=== PATIENT | male | born 1935 | race Caucasian/White ===

== ENCOUNTER 2018-10-26 18:38 | Inpatient (IN) | payer OTHER, MEDICARE ==
[~2018-10-26] VITALS: Ht 172.7 cm; Wt 62.1 kg
[~2018-10-26 18:38] MED LIST: ALBU90OI6 INH; ASPI325EC PO; BUDE6HFA; Bactrim Ds Tab1 EACH PO; LISI20 PO; OMEP20ER PO; Omeprazole20 M1; ZESTORETIC 20-121 E1 PO
[2018-10-26] MEDS ORDERED: **INCOMPLETE MED REC (19:27)
[2018-10-26 19:34] LABS: PCO2 Arterial 30.8 mmHg (35-45); PO2 Arterial 58.3 mmHg (80-100); pH Blood Arterial 7.49 (7.35-7.45)
[2018-10-26] MEDS ORDERED: OMEPRAZOLE20 MG PO (19:38)
[2018-10-26] MEDS ORDERED: ASPI325 PO (19:38)
[2018-10-26 19:39] LABS: BASOPHILS ABSOLUTE AUTO 0.06 K/mm3 (0.00-0.23); BASOPHILS PERCENT AUTO 1 % (0-2); EOSINOPHILS ABSOLUTE AUTO 0.15 K/mm3 (0.00-0.68); EOSINOPHILS PERCENT AUTO 1 % (0-6); Hematocrit 44.5 % (37.0-53.0); IMMATURE GRAN ABSOLUTE AUTO 0.04 K/mm3 (0.00-0.10); IMMATURE GRAN PERCENT AUTO 0 % (0-1); LYMPHOCYTES ABSOLUTE AUTO 1.24 K/mm3 (0.84-5.20); LYMPHOCYTES PERCENT AUTO 12 % (21-46); MONOCYTES ABSOLUTE AUTO 0.83 K/mm3 (0.16-1.47); MONOCYTES PERCENT AUTO 8 % (4-13); Mean Corpuscular HGB 30.6 pg (26.0-34.0); Mean Corpuscular HGB Conc 31.5 g/dL (31.5-36.5); Mean Corpuscular Volume 97 fL (80-100); Mean Platelet Volume 10.9 fL (9.1-12.4); NEUTROPHILS ABSOLUTE AUTO 8.03 K/mm3 (1.96-9.15); NEUTROPHILS PERCENT AUTO 78 % (41-73); Platelet Count 307 K/mm3 (150-400); RDW Coefficient Variation 12.9 % (11.7-14.2); Red Blood Cell Count 4.58 M/mm3 (4.30-5.90); White Blood Cell Count 10.35 K/mm3 (4.00-11.30)
[2018-10-26 19:51] LABS: Alanine Aminotransfer (ALT/SGP 18 U/L (12-78); Albumin, Blood 3.8 g/dL (3.4-5.0); Albumin/Globulin Ratio 0.9 (0.8-1.8); Alk Phos 115 U/L (50-136); Anion Gap 9 mmol/L (6-16); Aspartate Aminotrans (AST/SGOT 18 U/L (12-37); Bilirubin, Total 1.4 mg/dL (0.1-1.0); Blood Urea Nitrogen 23 mg/dL (8-24); Bun/Creatinine Ratio 22.3 (12.0-20.0); CO2, Blood 25 mmol/L (21-32); Calcium, Blood 9.4 mg/dL (8.5-10.1); Chloride, Blood 103 mmol/L (98-108); Creatinine, Blood 1.03 mg/dL (0.60-1.20); Globulin, Blood 4.1 g/dL (2.2-4.0); Glomerular Filtration Rate >60 (60-); Glucose, Blood 116 mg/dL (70-99); Magnesium, Blood 1.9 mg/dL (1.6-2.4); Potassium, Blood 3.4 mmol/L (3.5-5.5); Sodium, Blood 137 mmol/L (136-145); Total Protein, Blood 7.9 g/dL (6.4-8.2)
[2018-10-26] MEDS ORDERED: Metoprolol Tar100 MG PO (20:05)
[2018-10-26] MEDS ORDERED: FENO48 PO (20:06)
[2018-10-26] MEDS ORDERED: Hytrin2 MG PO (20:06)
[2018-10-26 20:21] LABS: Troponin I 0.583 ng/mL (0.000-0.040)
[2018-10-26 22:03] LABS: International Normalized Ratio 1.07; Prothrombin Time Results 11.3 Sec (9.7-11.5)
--- NOTE | 2018-10-26 23:23 | NUR ---
ADMIT PT ARRIVED TO ICU 3 AT 2210 VIA ER BED. PT IS AWAKE, ALERT, AND ORIENTED. PT TRANSFERED TO ICU BED AND ASSISTED WITH REPOSITIONING. PT APPEARS FATIGUED AND WEAK. PT ON 2L O2 NC. VITAL SIGNS STABLE, AFIB WITH CONTROLLED RATE. PT WITH SEVERE COUGHING EPISODE AND VAGULED DOWN TO HR IN LOW 40'S FOR SHORT PERIOD OF TIME. KCL INFUSING AT THIS TIME. PT REPORTS BURNING TO RIGHT ARM IV SITE WITH KCL INFUSION. PT OTHERWISE DENIES PAIN OR DISCOMFORT. NO FAMILY AT BEDSIDE. WILL CONTINUE TO MONITOR.
[2018-10-27 01:27] LABS: Adenovirus Not Detected (NOT DETECT); Bordetella pertussis Not Detected (NOT DETECT); Chlamydophila pneumoniae Not Detected (NOT DETECT); Coronavirus 229E Not Detected (NOT DETECT); Coronavirus HKU1 Not Detected (NOT DETECT); Coronavirus NL63 Not Detected (NOT DETECT); Coronavirus OC43 Not Detected (NOT DETECT); Human Metapneumovirus Not Detected (NOT DETECT); Human Rhinovirus/Enterovirus Not Detected (NOT DETECT); Influenza A Not Detected (NOT DETECT); Influenza A/2009-H1 Not Detected (NOT DETECT); Influenza A/H1 Not Detected (NOT DETECT); Influenza A/H3 Not Detected (NOT DETECT); Influenza B Not Detected (NOT DETECT); Mycoplasma pneumoniae Not Detected (NOT DETECT); Parainfluenza Virus 1 Not Detected (NOT DETECT); Parainfluenza Virus 2 Not Detected (NOT DETECT); Parainfluenza Virus 3 Not Detected (NOT DETECT); Parainfluenza Virus 4 Not Detected (NOT DETECT); Respiratory Syncytial Virus Not Detected (NOT DETECT)
[2018-10-27 01:34] LABS: Free Thyroxine 1.34 ng/dL (0.70-1.60)
[2018-10-27 01:38] LABS: Triiodothyronine, Free 2.49 pg/mL (2.18-3.98)
[2018-10-27 03:28] LABS: U Amphetamine Screen Not Detected; U Barbituate Screen Not Detected; U Benzodiazapine Screen Not Detected; U Buprenorphine Screen Not Detected; U Cannabinoids Screen Not Detected; U Cocaine Screen Not Detected; U Methadone Screen Not Detected; U Methamphetamine Screen Not Detected; U Opiates Screen Not Detected; U Oxycodone Screen Not Detected; U Phencyclidine Screen Not Detected; U Propoxyphene Screen Not Detected
[2018-10-27 03:47] LABS: Hematocrit 40.9 % (37.0-53.0); Hemoglobin 13.2 g/dL (13.5-17.5); Mean Corpuscular HGB 31.1 pg (26.0-34.0); Mean Corpuscular HGB Conc 32.3 g/dL (31.5-36.5); Mean Corpuscular Volume 97 fL (80-100); Mean Platelet Volume 11.3 fL (9.1-12.4); Platelet Count 311 K/mm3 (150-400); RDW Standard Deviation 45.6 fL (35.1-46.3); Red Blood Cell Count 4.24 M/mm3 (4.30-5.90); White Blood Cell Count 10.58 K/mm3 (4.00-11.30)
[2018-10-27 04:04] LABS: Anion Gap 9 mmol/L (6-16); Blood Urea Nitrogen 24 mg/dL (8-24); Bun/Creatinine Ratio 20.9 (12.0-20.0); CO2, Blood 24 mmol/L (21-32); Calcium, Blood 8.8 mg/dL (8.5-10.1); Chloride, Blood 105 mmol/L (98-108); Creatinine, Blood 1.15 mg/dL (0.60-1.20); Glomerular Filtration Rate >60 (60-); Glucose, Blood 121 mg/dL (70-99); Magnesium, Blood 2.7 mg/dL (1.6-2.4); Potassium, Blood 4.6 mmol/L (3.5-5.5); Sodium, Blood 138 mmol/L (136-145)
--- NOTE | 2018-10-27 06:14 | NUR ---
SHIFT SUMMARY NO ACUTE CHANGES THIS SHIFT. PT HAS SLEPT OFF AND ON THROUGHOUT THE NIGHT. PT IS ALERT, ORIENTED, AND FOLLOWING COMMANDS APPROPRIATELY WNEN AWAKE. PT HAS DENIED PAIN OR DISCOMFORT. VITAL SIGNS HAVE BEEN STABLE. PT CONVERTED TO NSR AROUND 0000 AND HAS REMAINED IN NSR 70-80'S. BP HAS REMAINED STABLE. PT ON 2L O2 NC. HEPARIN GTT INFUSING AT 13 UNITS/KG/HR PER PHARMACY. PT HAS USED URINAL TO VOID. WILL CONTINUE TO MONITOR AND REPORT OFF TO ONCOMING RN.
--- NOTE | 2018-10-27 07:43 | NUR ---
Recieved report from Pablo Marie. Patient sitting up in bed with HOB> 30 degrees. Son has arrived to see patient and is in room talking with him. He is clear and able to communicate his needs and deneis any pain intervention for 2/10 general pain. He is on 2L O2via NC and sats 96%. He is NSR with an occassional arrythmmia and intermitent a-fib, systolic 160's. He has 20ga RAC dressing intact and site WNL's and is infusing Heparin at 13 units/kg/hr and pearl also has 20ga RW dressing intact and site WNL's, flushed and SL'd
--- NOTE | 2018-10-27 09:30 | NUR ---
Patient has been resting, tolerated po meds and small amount of breakfast. Cardiology has been by and will write for some new meidcations and keep heparin at current rate. He MAEW but weak. He remains on 2 L O2 via NC and sats 97%. Son called to check on him.
--- NOTE | 2018-10-27 11:30 | NUR ---
Patient has had several calls and visitor. He was started on prednisone and loading PO dose of Amiodarone. He has been resting off and on. He continues in SR 80, and 2L O2 vis NC and sats mid 90%'s He is sitting up starting lunch.
--- NOTE | 2018-10-27 13:30 | NUR ---
Patient resting quietly. Heparin 3000 unit bolus and increase gtt to 15 units/kg/hr. no changes with O2 and VSS.
--- NOTE | 2018-10-27 15:30 | NUR ---
Patient continues to rest, VSS. He just recieved updraft and sats mid to upper 90%'s. No changes and he is nopw PCU status.
--- NOTE | 2018-10-27 19:23 | NUR ---
Patient sitting up in bed . No significant changes with patient. He remains in SR 80 and 2 L O2 via NC and sats low to mid 90%'s. He uses urinal appropriately. Gave report to Noé SWENSON.
--- NOTE | 2018-10-27 20:00 | NUR ---
ASSUMING CARE RECEIVED PT REPORT FROM LEELA LEON. PT IS ALERT AND ORIENTED AT THE TIME CARE ASSUMED. PT IS ABLE TO ANSWER ALL ORIENTATION QUESTIONS APPROPRITELY AT THIS TIME. PT IS ADMITTED DUE TO A-FIB WITH RVR. PT APPEARS TO BE IN A SINUS RHYTHM AT THIS TIME. PT HR IS IN THE 70-80'S. PT IS ON 2L O2 VIA NC WHILE AWAKE AND 4L O2 VIA NC WHILE ASLEEP. PT IS RECEIVING HEPARIN AT A RATE OF 15U/KG/HR AT THE TIME CARE ASSUMED. PT IS NOT RECEIVING ANY OTHER IV MEDICATIONS AT THIS TIME. PT IS ABLE TO REPOSITION SELF AND USE URINAL UNASSISTED. ASSUMING CARE OF PT AT THE TIME OF SHIFT REPORT. WILL CONTINUE TO MONITOR.
[2018-10-28 03:34] LABS: BASOPHILS ABSOLUTE AUTO 0.02 K/mm3 (0.00-0.23); BASOPHILS PERCENT AUTO 0 % (0-2); EOSINOPHILS PERCENT AUTO 0 % (0-6); Hematocrit 42.4 % (37.0-53.0); Hemoglobin 13.3 g/dL (13.5-17.5); IMMATURE GRAN ABSOLUTE AUTO 0.03 K/mm3 (0.00-0.10); IMMATURE GRAN PERCENT AUTO 0 % (0-1); LYMPHOCYTES ABSOLUTE AUTO 0.43 K/mm3 (0.84-5.20); LYMPHOCYTES PERCENT AUTO 5 % (21-46); MONOCYTES ABSOLUTE AUTO 0.35 K/mm3 (0.16-1.47); MONOCYTES PERCENT AUTO 4 % (4-13); Mean Corpuscular HGB 30.8 pg (26.0-34.0); Mean Corpuscular HGB Conc 31.4 g/dL (31.5-36.5); Mean Corpuscular Volume 98 fL (80-100); Mean Platelet Volume 10.7 fL (9.1-12.4); NEUTROPHILS ABSOLUTE AUTO 7.31 K/mm3 (1.96-9.15); NEUTROPHILS PERCENT AUTO 90 % (41-73); Platelet Count 276 K/mm3 (150-400); RDW Coefficient Variation 12.8 % (11.7-14.2); RDW Standard Deviation 46.1 fL (35.1-46.3); Red Blood Cell Count 4.32 M/mm3 (4.30-5.90); White Blood Cell Count 8.14 K/mm3 (4.00-11.30)
[2018-10-28 03:52] LABS: Albumin, Blood 3.4 g/dL (3.4-5.0); Anion Gap 9 mmol/L (6-16); Blood Urea Nitrogen 33 mg/dL (8-24); Bun/Creatinine Ratio 25.8 (12.0-20.0); CO2, Blood 24 mmol/L (21-32); Calcium, Blood 8.5 mg/dL (8.5-10.1); Chloride, Blood 103 mmol/L (98-108); Creatinine, Blood 1.28 mg/dL (0.60-1.20); Glomerular Filtration Rate 57 (60-); Glucose, Blood 140 mg/dL (70-99); Magnesium, Blood 2.4 mg/dL (1.6-2.4); Phosphorus, Blood 4.1 mg/dL (2.5-4.9); Potassium, Blood 4.9 mmol/L (3.5-5.5); Sodium, Blood 136 mmol/L (136-145)
--- NOTE | 2018-10-28 07:33 | NUR ---
SHIFT SUMMARY NOTE PT HAS REMAINED ALERT AND ORIENTED WHILE AWAKE THROUGH THE NIGHT. PT HAS HAD A CIWA SCORE OF 0 THROUGHOUT THE NIGHT WITH NO WITHDRAWAL SYMPTOMS OBSERVED OVERNIGHT. PT VITAL SIGNS HAVE REMAINED STABLE WITH THE EXCEPTION OF OCCASIONAL DESATURATIONS INTO THE MID TO HIGH 80'S WHILE ASLEEP. PT O2 INVREASED TO 5L O2 VIA NC WHILE ASLEEP. PT REMAINS ON HEPARIN GTT A 15U/KG/HR. HEPARIN RATE WAS NOT CHANGED THROUGHOUT THE NIGHT. WILL REPORT OFF TO ONCOMING DAY SHIFT NURSE.
--- NOTE | 2018-10-28 08:00 | NUR ---
Patient awake in bed and is able to communicate his needs, he is alert but does make some odd statements. He shows minimal signs of with drawls. He remains on 2 L O2 via NC when awake and 4 L O2 when sleeping. He has 20ga IV RAC dressing intact and site WNL's and is infusing Heparin at 24 units/kg/hr. He also has 20ga IV RW dressing intact and site WNL's and has been flushed and SL. He uses urinal appropriately. He denies any pain or current needs.
--- NOTE | 2018-10-28 09:30 | NUR ---
Patient tolerated meds and 50% of breakfast well. He remains on 2l O2 while awake. He is currently wotking with PT and managing well. He will be getting up to shower shortly. Dr Taylor has been in and changed meds and stopped Heparin. Dr Peacock has been in room and no new orders. Patezent is now Med with tele. VSS
--- NOTE | 2018-10-28 11:30 | NUR ---
Patient was up in shower and was wheeled in chair. He was in shower for about 15 minuts and was brought back to room where lunch was waiting. Linen changes and we slid in bed and repostioned. Rehooked up tele and patient got comfortable. No changes in VS, systolic low 100, and HR 80's. He wasd on 4L O2 while up to shower and when returned reduced to 2L O2 via NC and sats low to mid 90%.
[2018-10-28 13:51] LABS: Hematocrit 35.5 % (37.0-53.0); Hemoglobin 11.3 g/dL (13.5-17.5)
--- NOTE | 2018-10-28 14:10 | NUR ---
1240- Went in room to do noon vs and hooked up and pressed start and patient looked to be resting, when sitting next to monitor i saw bp systolic 60 and went right in to re-evaluate and tried to wake patient with little arouse. His HR in the 70 and sats in the low 90's and was not arousing. Dr Taylor was called and gave orders and then Dr Gomez called and she came down. Dr gomez was outside room and asked her to look at patient and we both agreed to be post dictal and he was strting to arouse. He was able to squeeze both hands. 1300- He started to decline fast and Dr gomez was consulted and requested PICC and was put in, checked by Xray and read by Dr. Gomez and started Dopamine at 5mcg and was taken to CT stat. 1330- He had seizure like activity while transferring him to CT table, increased O2. Finished CT within acouple minutes and patient sats dropped to low 80and rpessure stay down and incread Dopamine to 10mcg and pressures started to increase and O@ sats 89% and rushed back to ICU. 1400- Sats started to deacrease again and he was starting to arouse again and we palced on BIPAP10/5 at 50% Fio2. Law is in room now along with patients girlfriend and family. Simpson was placed after BIPAP placed.
[2018-10-28 14:32] LABS: International Normalized Ratio 1.14; Prothrombin Time Results 11.9 Sec (9.7-11.5)
[2018-10-28 14:57] LABS: Source, Urine Catheter
[2018-10-28 15:15] LABS: Bilirubin, Urine Neg (Neg); Blood, Urine Neg (Neg); Glucose Qualitative, Urine Neg (Neg); Ketones, Urine Neg (Neg); Leukocyte Esterase, Urine Neg (Neg); Nitrite, Urine Neg (Neg); Protein, Urine 1+ (Neg); Urobilinogen, Urine NORM (Normal)
[2018-10-28 15:25] LABS: Appearance, Urine Clear (Clear); Color, Urine Yellow (P-Yellow)
[2018-10-28 16:07] LABS: Base Excess Venous -2.7 mmol/L; PCO2 Venous 43.5 mmHg (38-42); PO2 Venous 68.9 mmHg (38-42); pH Blood Venous 7.33 (7.34-7.37)
--- NOTE | 2018-10-28 16:30 | NUR ---
Patient continues on BIPAP 10/ sats mid to up[per 90%'s and I Have reduced Dopamine back down to 5mcg with systolic 130's. Son Jerald remains at bedside. He has been c/o about kraft and really needs to urinate but explain to him it just feels that way. He is much more awake when talkiing with him. VSS.
--- NOTE | 2018-10-28 18:34 | NUR ---
Gave him a break aftyer VBG results were good and place in on oximizer 10L O2 but did not keep sats up and put him back on BIPAP and doing well. He continues while awake to pull at BIPAP and needs redirection and follows commands. Dopamine remains at 5mcg.
--- NOTE | 2018-10-28 23:34 | NUR ---
ASSUMING CARE RECEIVED PT REPORT FROM LEELA LEON. PT IS ABLE TO ANSWER ORIENTATION QUESTIONS APPROPRIATELY AT THIS TIME, THOUGH PT APPEAR TO BE FORGETFUL AND DOES NOT RECAL MOST EVENTS OF THE PREVIOUS SHIFT. PT IS TIRED AND SOMEWHAT DIFICULT TO AROUSE. PT IS ON BIPAP AT THE TIME OF SHIFT REPORT AT 10/5 WITH 50% FIO2. PT SPO2 IS MAINTAINING IN THE MID TO LOW 90'S AT THIS TIME. PT IS RECEIVING DOPAMINE AT 5MCG/KG/MIN. PT HR IS MAINTAINING IN THE 70'S AND BP IS IN THE 110-120'S PT HAS DAILEY CATH IN PLACE. CURRENTLY PATENT AND DRAINING AT THIS TIME. ASSUMING CARE OF PT AT THE TIME OF SHIFT REPORT. WILL CONTINUE TO MONITOR PT.
[2018-10-29 03:47] LABS: BASOPHILS PERCENT AUTO 0 % (0-2); EOSINOPHILS PERCENT AUTO 0 % (0-6); Hematocrit 36.1 % (37.0-53.0); Hemoglobin 11.5 g/dL (13.5-17.5); IMMATURE GRAN ABSOLUTE AUTO 0.04 K/mm3 (0.00-0.10); IMMATURE GRAN PERCENT AUTO 0 % (0-1); LYMPHOCYTES ABSOLUTE AUTO 0.31 K/mm3 (0.84-5.20); LYMPHOCYTES PERCENT AUTO 3 % (21-46); MONOCYTES PERCENT AUTO 5 % (4-13); Mean Corpuscular HGB 30.9 pg (26.0-34.0); Mean Corpuscular HGB Conc 31.9 g/dL (31.5-36.5); Mean Corpuscular Volume 97 fL (80-100); Mean Platelet Volume 10.6 fL (9.1-12.4); NEUTROPHILS PERCENT AUTO 91 % (41-73); Platelet Count 267 K/mm3 (150-400); RDW Coefficient Variation 12.7 % (11.7-14.2); RDW Standard Deviation 45.3 fL (35.1-46.3); Red Blood Cell Count 3.72 M/mm3 (4.30-5.90); White Blood Cell Count 9.85 K/mm3 (4.00-11.30)
[2018-10-29 04:02] LABS: Anion Gap 6 mmol/L (6-16); Blood Urea Nitrogen 39 mg/dL (8-24); Bun/Creatinine Ratio 33.6 (12.0-20.0); CO2, Blood 26 mmol/L (21-32); Calcium, Blood 7.9 mg/dL (8.5-10.1); Chloride, Blood 107 mmol/L (98-108); Creatinine, Blood 1.16 mg/dL (0.60-1.20); Glomerular Filtration Rate >60 (60-); Glucose, Blood 128 mg/dL (70-99); Potassium, Blood 4.9 mmol/L (3.5-5.5); Sodium, Blood 139 mmol/L (136-145)
[2018-10-29 05:07] LABS: PCO2 Arterial 38.6 mmHg (35-45); PO2 Arterial 70.1 mmHg (80-100); pH Blood Arterial 7.39 (7.35-7.45)
--- NOTE | 2018-10-29 05:44 | NUR ---
SHIFT SUMMARY NOTE PT HAS REMAINED ABLE TO ANSWER ORIENTATION QUESTIONS APPROPRIATELY THROUGH THE NIGHT. NO SEIZURE LIKE ACTIVITY OR ACUTE NEUROLOGICAL DEFICITS OBSERVED THROUGH THE NIGHT. PT HAS REMAINED ON BIPAP THROUGHOUT THE NIGHT. PT BIPAP SETTINGS REMAIN AT 10/5, FIO2 WAS TITRATED DOWN TO 40%. PT HAS MAINTAINED SPO2 IN THE MID TO LOW 90'S THROUGHOUT THE NIGHT WITHOUT NOTED DESATURATIONS. PT CONTINUES TO HAVE DAILEY CATH IN PLACE. DAILEY REMAINS PATENT AND DRAINING TO GRAVITY AT THIS TIME. URINE IS CLEAR BOSTON TO YELLOW COLORED. PT HAS REMAINED ON DOPAMINE THROUGHOUT THE NIGHT AT 5MCG/KG/MIN. DOPAMINE RATE HAS REMAINED UNCHANGED THROUGHOUT THE NIGHT. PT HR HAS MAINTAINED IN THE 70-80'S AND BP IN THE 110-120'S THROUGH MUCH OF THE NIGHT. PT HAS BEEN ABLE TO REPOSITION SELF IN BED WITHOUT ASSISTANCE THROUGHOUT THE NIGHT. WILL REPORT OFF TO ONCOMING DAY SHIFT NURSE.
--- NOTE | 2018-10-29 07:30 | NUR ---
Recieved report from Noé SWENSON.Patient is sleeping with BIPAP in place / at 30% FiO2 and sats mid 90%'s. His son Jerald is by erarly and we awaken him and he is alert and is able to communicate his needs. He has PICC line in DOMINGA dressing intact and site WNL's and is infusing Dopamine at 5mcg and sut off for systolic 140 and will monitor for changes. He has kraft draing to gravity with light deloris colored urine. He denies any current needs other than take this mask off.
--- NOTE | 2018-10-29 10:00 | NUR ---
Patient is given break from BIPAP and placed on oximizer 10L O2 and sats 95-97%. Gave him sips of water to see if tolerate and he did well and gave pill;s and tolerated well. I went and got [place] juice and he did well. Son remains in room. Systolic 100-120 with Dopamine off.
--- NOTE | 2018-10-29 12:00 | NUR ---
Patient was changed over to HF NC at 10L O2 and sats upper 90%'s. He has been interactive with his care. Dopamnine remains off and systolic 90-100 with MAP >65. He currently denies any needs. Son has gone home for awhile. No more signs of seizure activity.
--- NOTE | 2018-10-29 14:00 | NUR ---
Patient has been resting off BIPAP and decreased HF NC to 7L O2 and sats 92-97%. VSS, HR 77, systolic 122 and MAP >65. He denies any intervention for pain, and states general discomfort from laying in bed.
--- NOTE | 2018-10-29 16:00 | NUR ---
No significant changes with patient, Dr Amaro was in room checking with patient and reduced his O2 down to 5L O2 and did not last even her getting out of room. and she turned him back up to 7L. He awoke and was cooperative with his care.
--- NOTE | 2018-10-29 17:59 | NUR ---
Patient resting. No new changes. He remains on 7L O2 HF NC and sats 95%. His Girlfriend was by but did not want to wake him up and left. No new signs of seizure activity.
--- NOTE | 2018-10-29 19:15 | NUR ---
ASSUMING CARE OF PT AT THIS TIME. PT REPORT RECEIVED AT BEDSIDE WITH OFFGOING NURSE, CAROLYN SWENSON. PT LAYING IN BED, SLEEPING UPON ENTERING THE ROOM. PT'S FAMILY WALKING IN TO ICU AT THIS TIME. VS STABLE - SEE VS FS. PT DOES NOT APPEAR TO BE IN DISTRESS AT THIS TIME. WILL REVIEW PLAN OF CARE.
--- NOTE | 2018-10-29 19:30 | NUR ---
ASSESSMENT PT CALM, QUIET, COOPERATIVE, SLIGHT CONFUSION, A&O EXCEPT TO DATE/TIME/EVENT, RESPONDS TO VERBAL STIMULI, SPONT OPENS EYES, ABLE TO COMMUNICATE NEEDS, FOLLOWS COMMANDS. SENATION INTACT. DENIES N/T. PT ALEXANDRA. WEAKNESS NOTED. PT ABLE TO REPOSITION SELF IN BED. PT DENIES PAIN/DISCOMFORT AT THIS TIME. NO S/SX OF PAIN/DISCOMFORT NOTED. LUNGS CLEAR, LOWER LOBES DIMINIHSED. PT ON 7L HIGH FLOW NC. RR 20'S. OXY SAT >90%. BIPAP 10/5, FIO2 40% AT BEDSIDE. SHALLOW BREATHING. OCC NONPRODUCTIVE COUGH. DENIES SOB. AFEBRILE. NSR WITH OCC PAC'S. HR 80'S. BP STABLE - SEE VS FS. STRONG RADIAL PULSES. FAINT TIBIAL AND PEDAL PULSES. WARM, PINK SKIN. ACTIVE BT X4 QUADRANTS. ABD SOFT, NONTENDER, MILD DIST (PT STATES ABD DIST IS NORMAL). NO N/V. NO BM. PT TOLERATING FULL LIQUID DIET. F/C IN PLACE - YELLOW URINE NOTED. PICC DOMINGA.
--- NOTE | 2018-10-30 05:08 | NUR ---
SHIFT ASSESSMENT NO ACUTE CHANGES NOTED T/O SHIFT. PT SLEPT T/O SHIFT. PT CALM, QUIET, COOPERATIVE, SLIGHT CONFUSION, A&O EXCEPT TO DATE/TIME/EVENT, RESPONDS TO VERBAL STIMULI, SPONT OPENS EYES, ABLE TO COMMUNICATE NEEDS, FOLLOWS COMMANDS. SENSATION INTACT. DENIES N/T. PT ALEXANDRA. WEAKNESS NOTED. PT ABLE TO REPOSITION SELF IN BED. PT DENIED PAIN/DISCOMFORT T/O SHIFT. NO S/SX OF PAIN/DISCOMFORT NOTED T/O SHIFT. LUNGS CLEAR, LOWER LOBES DIMINISHED. PT CURRENTLY ON 5L HIGH FLOW NC WITH HUMIDIFIED AIR. CONT TO TITRATE OXYGEN TO MAINTAIN SPO2 90% AND GREATER. OXYGEN TITRATED BETWEEN 3L TO 7L HIGH FLOW NC WITH HUMIDIFIED AIR. LESS OXYGEN REQUIREMENT VIA HIGH FLOW NC WITH HUMIDIFIED AIR WHILE AWAKE. RR 16 TO 30'S. SHALLOW BREATHING. OCC NONPRODUCTIVE COUGH. DENIES SOB. AFEBRILE. NSR TO ST WITH OCC PAC'S. HR 70'S TO 100'S. BP STABLE - SEE VS FS. STRONG RADIAL PULSES. FAINT TIBIAL AND PEDAL PULSES. WARM, PINK. ACTIVE BT X4 QUADRANTS. ABD SOFT, NONTENDER, MILD DIST (PT STATES ABD DIST IS NORMAL). NO N/V. NO BM. PT TOLERATING FULL LIQUID DIET. F/C IN PLACE - YELLOW URINENOTED. PICC DOMINGA - SL. WILL CONT TO MONITOR PT AND WILL RPOVIDE BEDSIDE REPORT TO ONCOMING NURSE THIS AM.
--- NOTE | 2018-10-30 11:39 | NUR ---
[address] RIVERO AWARE. PT ASYMTOMACTIC. SON IN ROOM. VAGAL MANEUVER CORRECTED AND PO AM MEDS GIVEN. PT WAS SETTING UP EATING VISITING WITH SON. PT DENIES ANY FURTHER DISTRESS BUT JUST TIRED AND NOT FEELING WELL. 0950 SVT AGAIN NOTED. VSS STABLE OTHERWISE. PT SLEEPING AND RESTING.
--- NOTE | 2018-10-30 13:30 | NUR ---
Met pt in bed resting after his Dr`s visit, pt eports getting better encouraged pt. and offered prayers.
--- NOTE | 2018-10-30 16:07 | NUR ---
EEG COMPLETED AND NO DISTRESS NOTED. SON KWASI IN TO SEE PT AND VISIT.
--- NOTE | 2018-10-30 16:27 | NUR ---
SON WAS EXPRESSING CONCERNS OVER DTS. PT CIWA -2 CURRENTLY. REQUESTING TO NAP.
--- NOTE | 2018-10-30 17:57 | NUR ---
PT IS NOW SETTING UP FEEDING SELF W/O EVIDENCE OF ETOH WITHDRAWALS AND CIWA NOTED AT 2. PT HAS REMAINED SINUS W/O FURTHER SVT THIS AM. CAROTID DUPLEX STUDY AND EEG COMPLETED. VS, SATS, I/O NOTED THIS SHIFT AND PT REMAINS ON 5L HFNC.
--- NOTE | 2018-10-30 19:15 | NUR ---
ASSUMED CARE PT SITTING UP IN BED, AWAKE AND ALERT TO SELF AND LOCATION BUT CONFUSED TO DATE/TIME. PT DENIES COMPLAINTS OTHER THAN NOT WANTING TO BE IN THE HOSPITAL. CIWA ASSESSED D/T HX OF DAILY ETOH USE, PLAN TO CONTINUE TO MONITOR. VSS, ECG SHOWS SR 70-80'S, O2 SATS 95% ON HFNC AND NO IV FLUIDS VIA DOMINGA PICC.
--- NOTE | 2018-10-30 19:15 | NUR ---
ASSUMED CARE PT SITTING UP IN BED, DENIES COMPLAINTS OTHER THAN WANTING TO GO HOME. PT IS ALERT TO SELF, LOCATION BUT CONFUSED TO DATE. PER AM RN, PT HAS HAD MULTIPLE RUNS OF SVT OVER THE SHIFT, CURRENTLY IN SR 70-80'S. O2 VIA HFNC AT 5L WITH O2 SATS MID 90'S. NO IV FLUIDS, CIWA AT 2.
--- NOTE | 2018-10-30 19:27 | NUR ---
Pt alert, oriented. Reviewed interventions on POLST form. He states that he doesn't want "any of that," but defers to his son to fill the POLST out. He does not want intubated, chest compressions, or artificial nutrition. He states, "I'm ready to go whenever it is time." Pt is allowing me to follow up with him tomorrow. He would like his son to be there and doesn't want to make choices without him. Will follow up tomorrow.
[2018-10-31 03:56] LABS: BASOPHILS ABSOLUTE AUTO 0.01 K/mm3 (0.00-0.23); BASOPHILS PERCENT AUTO 0 % (0-2); EOSINOPHILS ABSOLUTE AUTO 0.01 K/mm3 (0.00-0.68); EOSINOPHILS PERCENT AUTO 0 % (0-6); Hematocrit 36.3 % (37.0-53.0); Hemoglobin 11.5 g/dL (13.5-17.5); IMMATURE GRAN ABSOLUTE AUTO 0.06 K/mm3 (0.00-0.10); IMMATURE GRAN PERCENT AUTO 0 % (0-1); LYMPHOCYTES ABSOLUTE AUTO 1.03 K/mm3 (0.84-5.20); LYMPHOCYTES PERCENT AUTO 7 % (21-46); MONOCYTES ABSOLUTE AUTO 1.26 K/mm3 (0.16-1.47); MONOCYTES PERCENT AUTO 9 % (4-13); Mean Corpuscular HGB 31.2 pg (26.0-34.0); Mean Corpuscular HGB Conc 31.7 g/dL (31.5-36.5); Mean Corpuscular Volume 98 fL (80-100); Mean Platelet Volume 10.8 fL (9.1-12.4); NEUTROPHILS PERCENT AUTO 83 % (41-73); Platelet Count 272 K/mm3 (150-400); RDW Coefficient Variation 13.4 % (11.7-14.2); RDW Standard Deviation 48.6 fL (35.1-46.3); Red Blood Cell Count 3.69 M/mm3 (4.30-5.90); White Blood Cell Count 14.27 K/mm3 (4.00-11.30)
[2018-10-31 04:11] LABS: Albumin, Blood 3.2 g/dL (3.4-5.0); Anion Gap 7 mmol/L (6-16); Blood Urea Nitrogen 40 mg/dL (8-24); Bun/Creatinine Ratio 32.8 (12.0-20.0); CO2, Blood 26 mmol/L (21-32); Calcium, Blood 8.1 mg/dL (8.5-10.1); Chloride, Blood 106 mmol/L (98-108); Creatinine, Blood 1.22 mg/dL (0.60-1.20); Glomerular Filtration Rate >60 (60-); Glucose, Blood 104 mg/dL (70-99); Phosphorus, Blood 1.9 mg/dL (2.5-4.9); Potassium, Blood 4.8 mmol/L (3.5-5.5); Sodium, Blood 139 mmol/L (136-145)
--- NOTE | 2018-10-31 04:33 | NUR ---
CALL TO DR HUITRON UPDATED ON AM LABS PHOS AND K+ NO NEW ORDERS.
--- NOTE | 2018-10-31 06:18 | NUR ---
SHIFT SUMMARY NO ACUTE EVENTS OVERNIGHT. NO SZ ACTIVITY OR ANY FURTHER TACHYARRHYTHMIAS THROUGHOUT SHIFT. PT HAS DENIED COMPLAINTS OTHER THAN NOT LIKING THE BED. FC REMAINS IN PLACE, PICC SALINE LOCKED. PT REFUSED AM PRILOSEC THIS AM. VSS, ECG SHOWS SR IN THE MID 60-70'S AND O2 SATS MID 90'S ON 4L HFNC.
--- NOTE | 2018-10-31 10:02 | NUR ---
0815 PT RESTING QUIETLY AND AUDIBLE WHEEZING NOTED W/O RESP DISTRESS. PT A/O NO S/S OF DT'S. VS NOTED WITH SR AND PAC.
--- NOTE | 2018-10-31 11:48 | NUR ---
Met pt. lying in bed, he reports doing fine encouraged pt and offered prayers for the pt.
--- NOTE | 2018-10-31 17:53 | NUR ---
PT HAS HAD PT/OT WORKING WITH HIM TODAY AND HAS DONE WELL. HAS ONLY HAD ONE NOTED SHORT RUN OF SVT. PT DOWN TO 3L HFNC AND TOLERATING WELL. PT HAD SPILLED URINE FROM AN EARLIER VOID IN BED AND UNABLE TO MEASURE.
--- NOTE | 2018-10-31 17:58 | NUR ---
PT L WRIST DNR BAN PLACED EARLIER TODAY AND PT FULLY AWARE AND AGREES PER A CONVERSATION WITH DR RIVERO. NEW ORDER NOTED.
--- NOTE | 2018-10-31 19:40 | NUR ---
ASSUME CARE: REPORT RECIEVED FROM DEBBY OFF GOING RN. RESTS QUIETLY WHEN UNDISTURBED LUNG SOUNDS COARSE WITH WHEEZES RESPIRATIONS REGULAR AND EASY AT REST OCC PRODUCTIVE COARSE COUGH.UDN GIVEN . ABDOMEN SOFT WITH BOWEL SOUNDS FOUR QUADS. VOIDS BOSTON URINE PER URINAL HOWEVER SPILT URINAL IN BED. UNABLE TO OBTAIN ACCURATE URINE OUTPUT. REPOSITIONS SELF IN BED. CONTINUE TO MONITOR AND REPORT CHANGE IN PATIENT CONDITION.
[2018-11-01 04:18] LABS: BASOPHILS ABSOLUTE AUTO 0.01 K/mm3 (0.00-0.23); BASOPHILS PERCENT AUTO 0 % (0-2); EOSINOPHILS ABSOLUTE AUTO 0.02 K/mm3 (0.00-0.68); EOSINOPHILS PERCENT AUTO 0 % (0-6); Hematocrit 37.2 % (37.0-53.0); Hemoglobin 11.7 g/dL (13.5-17.5); IMMATURE GRAN ABSOLUTE AUTO 0.05 K/mm3 (0.00-0.10); IMMATURE GRAN PERCENT AUTO 0 % (0-1); LYMPHOCYTES ABSOLUTE AUTO 1.27 K/mm3 (0.84-5.20); LYMPHOCYTES PERCENT AUTO 10 % (21-46); MONOCYTES ABSOLUTE AUTO 1.02 K/mm3 (0.16-1.47); MONOCYTES PERCENT AUTO 8 % (4-13); Mean Corpuscular HGB 31.1 pg (26.0-34.0); Mean Corpuscular HGB Conc 31.5 g/dL (31.5-36.5); Mean Corpuscular Volume 99 fL (80-100); Mean Platelet Volume 10.9 fL (9.1-12.4); NEUTROPHILS ABSOLUTE AUTO 10.35 K/mm3 (1.96-9.15); NEUTROPHILS PERCENT AUTO 81 % (41-73); Platelet Count 266 K/mm3 (150-400); RDW Coefficient Variation 13.5 % (11.7-14.2); RDW Standard Deviation 49.3 fL (35.1-46.3); Red Blood Cell Count 3.76 M/mm3 (4.30-5.90); White Blood Cell Count 12.72 K/mm3 (4.00-11.30)
[2018-11-01 04:35] LABS: Albumin, Blood 3.2 g/dL (3.4-5.0); Anion Gap 6 mmol/L (6-16); Blood Urea Nitrogen 35 mg/dL (8-24); Bun/Creatinine Ratio 31.8 (12.0-20.0); CO2, Blood 26 mmol/L (21-32); Calcium, Blood 8.3 mg/dL (8.5-10.1); Chloride, Blood 106 mmol/L (98-108); Glomerular Filtration Rate >60 (60-); Glucose, Blood 95 mg/dL (70-99); Phosphorus, Blood 2.2 mg/dL (2.5-4.9); Potassium, Blood 4.8 mmol/L (3.5-5.5); Sodium, Blood 138 mmol/L (136-145)
--- NOTE | 2018-11-01 06:00 | NUR ---
SHIFT SUMMARY: RESTS QUIETLY WHEN UNDISTURBED. A/O CONVERSANT. EYAK HOWEVER UNDERSTANDS WELL. LUNG SOUNDS COARSE WITH OCC WHEEZES. HI FLOW O2 IN PLACE AT 3L/MIN. SPO2 94-97% ABDOMEN SOFT WITH BOWEL SOUNDS FOUR QUADS. VOIDS BOSTON URINE PER URINAL. REPOSITIONS SELF IN BED. STATES " I'VE BEEN LAYING IN THIS BED SO LONG MY SHOULDER IS STARTING TO HURT.". CONTINUE TO MONITOR AND REPORT CHANGE IN PATIENT CONDITION
--- NOTE | 2018-11-01 07:30 | NUR ---
ASSUMED CARE PT ALERT AND ORIENTED TO LOCATION THIS AM. PT. VSS. PT. ATIF PAIN THIS AM. CURRENTLY ON NC AT 3L WITH HUMIDIFIED AIR. PT. UP TO BEDSIDE CHAIR WITH STAND BY ASSIST THIS AM. VOIDS USING URINAL. NADN. CALL LIGHT IN REACH.
--- NOTE | 2018-11-01 11:18 | NUR ---
REPORT TO MEDICAL FLOOR RN, PT TO BE TRANSFERRED TO ROOM 333, PT. VSS UPON TRANSFER. ALL BELONGINGS TRANSFERRED WITH PT.
--- NOTE | 2018-11-01 11:52 | NUR ---
Pt. is in bed resting and is doing much better wish pt all the best and offered prayers for pt.
--- NOTE | 2018-11-01 13:39 | NUR ---
Pt is sitting at side of bed, dangling. Aids are getting pt ready for a shower. Pt denies pain. He is mildly short of breath at rest, it seems. He has O2 on. Pt reports that he does not know if he is discharging or when. I ask if he is interested in going home with hospice services, he reports, "not really. It's just me and my dogs. That's all I need." Will return to room to discuss further. I may follow up with family to discuss plan of care. Pt needs caregivers, it is clear that he will not be able to take care of himself at home, care managers are aware, notes reviewed. Pt's son is a ST from [employer]. Hopefully, pt goes home with home health or hospice. He is a high risk to return to the hospital if he does not go on hospice. Will remain available.
--- NOTE | 2018-11-01 18:42 | NUR ---
DISCHARGE SUMMARY PT AXO, PLEASANT AND COOPERATIVE WITH CARE. PT HAS HAD THREE LARGE LOOSE, PASTY, YELLOW BM'S THIS SHIFT. NO ACUTE CHANGES THIS SHIFT. IV PATENT AND SALINE LOCKED. BED IN LOW POSITION, CALL LIGHT WITHIN REACH.
--- NOTE | 2018-11-01 18:57 | NUR ---
PT'S FAMILY WANTS CARE MANAGERS TO BE AWARE THAT PT PREFERS [facility] IF PT NEEDS REHAB
--- NOTE | 2018-11-02 04:16 | NUR ---
83 year old Male admitted 10/26/18 after going out with his Girlfriend and having seizure activity new while out. PT denies oxygen use at home, exsmoker with COPD emphysema. On oxygen 3 l nc to wean off to keep sats greater than 90%. 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 He is weak and deconditioned. Was transferred to Medical floor recently. Fall and CIWA precautions in place. Does have mild intermittant confusion. likes to sit on side of bed and able to sit upright to use urinal and eat. Tolerating diet and some activity. Would like to return home lives alone. On IV Keppra for recent seizure activity. 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 Able to communicate but hard of hearing and doesn't wear hearing aides. CIWA negative.
[2018-11-02 05:51] LABS: BASOPHILS ABSOLUTE AUTO 0.01 K/mm3 (0.00-0.23); BASOPHILS PERCENT AUTO 0 % (0-2); EOSINOPHILS ABSOLUTE AUTO 0.02 K/mm3 (0.00-0.68); EOSINOPHILS PERCENT AUTO 0 % (0-6); Hematocrit 38.3 % (37.0-53.0); Hemoglobin 11.8 g/dL (13.5-17.5); IMMATURE GRAN PERCENT AUTO 1 % (0-1); LYMPHOCYTES ABSOLUTE AUTO 0.97 K/mm3 (0.84-5.20); LYMPHOCYTES PERCENT AUTO 7 % (21-46); MONOCYTES ABSOLUTE AUTO 1.08 K/mm3 (0.16-1.47); MONOCYTES PERCENT AUTO 8 % (4-13); Mean Corpuscular HGB 30.6 pg (26.0-34.0); Mean Corpuscular HGB Conc 30.8 g/dL (31.5-36.5); Mean Corpuscular Volume 100 fL (80-100); Mean Platelet Volume 11.3 fL (9.1-12.4); NEUTROPHILS ABSOLUTE AUTO 10.94 K/mm3 (1.96-9.15); NEUTROPHILS PERCENT AUTO 83 % (41-73); Platelet Count 302 K/mm3 (150-400); RDW Coefficient Variation 13.4 % (11.7-14.2); RDW Standard Deviation 48.9 fL (35.1-46.3); Red Blood Cell Count 3.85 M/mm3 (4.30-5.90); White Blood Cell Count 13.12 K/mm3 (4.00-11.30)
[2018-11-02 06:51] LABS: Albumin, Blood 3.4 g/dL (3.4-5.0); Anion Gap 8 mmol/L (6-16); Blood Urea Nitrogen 33 mg/dL (8-24); Bun/Creatinine Ratio 27.3 (12.0-20.0); CO2, Blood 27 mmol/L (21-32); Calcium, Blood 8.6 mg/dL (8.5-10.1); Chloride, Blood 104 mmol/L (98-108); Creatinine, Blood 1.21 mg/dL (0.60-1.20); Glomerular Filtration Rate >60 (60-); Glucose, Blood 114 mg/dL (70-99); Phosphorus, Blood 2.8 mg/dL (2.5-4.9); Potassium, Blood 4.6 mmol/L (3.5-5.5); Sodium, Blood 139 mmol/L (136-145)
--- NOTE | 2018-11-02 13:35 | NUR ---
Pt. is lying in bed and talking with with family members in the room on visit,pt. is doing well and much better , encouraged pt and prayed for him.
--- NOTE | 2018-11-02 16:32 | NUR ---
PATIENT ALERT. ANGRY IN A.M. UPSET ABOUT "SHOTS" AND REFUSES HEPARIN EVEN AFTER EXPLAIN WHY GETTING IT. CONTINUOUS SAT MONITOR ON WITH PATIENT ON 4 LPM VIA N/C AND MONITOR MID 90'S. PATIENT DOES NOT ALWAYS LEAVE N/C ON. HAS HARD TIME USING URINAL WITHOUT DROPPING IT. AT THIS TIME UNLABORED RESPIRATIONS SITTING IN CHAIR LOOKING OUT WINDOW. CHAIR ALARM ON. WILL CONTINUE TO MONITOR.
--- NOTE | 2018-11-02 18:36 | NUR ---
CALLED R.T. ABOUT BRINGING UP EAR PROBE PATIENTS HANDS ARE COLD AND CAN NOT GLASSIE SATS AT THIS TIME. PATIENT STS HANDS ALWAYS COLD. OXYGEN AT 6 LPM VIA N/C IN HIS MOUTH. R.T. ST TURN OFF SAT MONITOR AND THEY WILL BE UP TO FIX.
--- NOTE | 2018-11-03 03:08 | NUR ---
DR JERRY ON FLOOR AND GAVE VERBAL ORDER UA WITH C & S IF UNDICATED DUE TO PTS FOUL SMELLING URINE AND URGENCY FREQUENCY AND HX OF KIDNEY INFECTIONS. pt PROVIDED WITH CLEAR URINAL WILL COLLECT CLEAN CATCH UA TO RULE OUT UTI .
--- NOTE | 2018-11-03 03:55 | NUR ---
PT ABLE TO GET UP TO BEDSIDE COMMODE AND HAD LARGE BROWN LOOSE BM. STATES HE FEELS WEAK. NO NEURO DEFICIT NOTED. HAS BEEN REFUSING HEPARIN. OXYGEN SAT 97% ON 3 L NC, WILL WEAN OXYGEN TO KEEP SATS GREATER THAN 90%. ciwa NEGATIVE. SON SAYS PT DOES DRINK DAILY UNKNOWN AMOUNT. HX EMPHYSEMA QUIT SMOKING IN 1984.
[2018-11-03 06:18] LABS: BASOPHILS ABSOLUTE AUTO 0.02 K/mm3 (0.00-0.23); BASOPHILS PERCENT AUTO 0 % (0-2); EOSINOPHILS ABSOLUTE AUTO 0.01 K/mm3 (0.00-0.68); EOSINOPHILS PERCENT AUTO 0 % (0-6); Hematocrit 38.4 % (37.0-53.0); Hemoglobin 12.3 g/dL (13.5-17.5); IMMATURE GRAN ABSOLUTE AUTO 0.13 K/mm3 (0.00-0.10); IMMATURE GRAN PERCENT AUTO 1 % (0-1); LYMPHOCYTES ABSOLUTE AUTO 0.88 K/mm3 (0.84-5.20); LYMPHOCYTES PERCENT AUTO 4 % (21-46); MONOCYTES ABSOLUTE AUTO 1.42 K/mm3 (0.16-1.47); MONOCYTES PERCENT AUTO 7 % (4-13); Mean Corpuscular HGB 30.8 pg (26.0-34.0); Mean Platelet Volume 10.8 fL (9.1-12.4); NEUTROPHILS ABSOLUTE AUTO 18.46 K/mm3 (1.96-9.15); NEUTROPHILS PERCENT AUTO 88 % (41-73); Platelet Count 328 K/mm3 (150-400); RDW Coefficient Variation 13.4 % (11.7-14.2); RDW Standard Deviation 47.7 fL (35.1-46.3); Red Blood Cell Count 3.99 M/mm3 (4.30-5.90); White Blood Cell Count 20.92 K/mm3 (4.00-11.30)
[2018-11-03 06:24] LABS: Mean Corpuscular Volume 96 fL (80-100)
[2018-11-03 06:31] LABS: Albumin, Blood 3.4 g/dL (3.4-5.0); Anion Gap 10 mmol/L (6-16); Blood Urea Nitrogen 29 mg/dL (8-24); Bun/Creatinine Ratio 22.7 (12.0-20.0); CO2, Blood 28 mmol/L (21-32); Calcium, Blood 7.3 mg/dL (8.5-10.1); Chloride, Blood 100 mmol/L (98-108); Creatinine, Blood 1.28 mg/dL (0.60-1.20); Glomerular Filtration Rate 57 (60-); Glucose, Blood 105 mg/dL (70-99); Magnesium, Blood 2.2 mg/dL (1.6-2.4); Phosphorus, Blood 3.3 mg/dL (2.5-4.9); Potassium, Blood 5.5 mmol/L (3.5-5.5); Sodium, Blood 138 mmol/L (136-145)
--- NOTE | 2018-11-03 06:45 | NUR ---
pt continues to be fall risk and needs assist with adls and toileting. ua not sent as pt was incontinet this am and had to be assisted with bsc and pericare after sm bm incontinence. he denies pain. con pulse ox ear probe. sats 84 to 90 % on room air or up to 97% on 2 l. CIWA negative. continues on IV antibiotic zosyn Q 6 hours via PICC line. Son in and requests DC planning for SNF prior to returning home. Requests [facility].
[2018-11-03 07:27] LABS: Source, Urine Clean Catch
[2018-11-03 07:32] LABS: Bilirubin, Urine Neg (Neg); Blood, Urine 1+ (Neg); Glucose Qualitative, Urine Neg (Neg); Ketones, Urine Neg (Neg); Leukocyte Esterase, Urine 2+ (Neg); Nitrite, Urine Neg (Neg); Protein, Urine 2+ (Neg); Specific Gravity, Urine 1.005 (1.003-1.022); Urobilinogen, Urine 1+ (Normal)
[2018-11-03 07:39] LABS: Appearance, Urine Clear (Clear); Color, Urine Yellow (P-Yellow)
[2018-11-03 07:41] LABS: White Blood Cells, Urine 25-50 /hpf (0-5)
[2018-11-03 07:42] LABS: Red Blood Cells, Urine 0-2 /hpf (0-2)
[2018-11-03 07:43] LABS: Amorphous Light ({null, 0-Heavy}); Bacteria Rare /hpf; Squamous Epithelial Cells Not Seen /hpf (Few)
--- NOTE | 2018-11-03 11:27 | NUR ---
STEP DAUGHTER CALLED THIS AM RETURNED CALL AND LEFT MESSAGE "FROM HOSPITAL RETURNING YOUR CALL."
--- NOTE | 2018-11-03 11:52 | NUR ---
DIE TECHNICIAN IN TO TALK TO PATIENT . PATIENT REFUSES TO WEAR N/C IN NOSE.
--- NOTE | 2018-11-03 12:11 | NUR ---
I was contacted by patient's nurse who informed me that a family member of the patient requested a visit from spiritual care for the patient. I visited with patient and he informed me that he had daily seen Father Justice and that his spiritual care needs were being met. I provdied companionship, a calming presence and help with conflict resolution within the family unit. Patient responded well and showed signs of catharsis. Patient expressed gratitude for the visit.
--- NOTE | 2018-11-03 13:26 | NUR ---
Met pt. in bed resting he reports doing fine encouraged pt. and prayed for him for good.
--- NOTE | 2018-11-03 18:16 | NUR ---
ALERT, ORIENTED. FORGETFUL. COOPERATIVE. DOES NOT ALWAYS LEAVE OXYGEN ON AND SATS DO FLUCTUATE. WILL LEAVE OXYGEN CANNULA IN MOUTH WHEN NOT EATTING. WEAK, UNSTEADY ON FEET. USES URINAL. AWARE NEEDS TO GO TO [facility] FOR REHAB. PICC LINE PATENT. BED IN LOW POSITION. CALL LIGHT WITHIN REACH. PATIENT DOES NOT NECESSARILY ALWAYS USE CALL LIGHT. WILL CONTINUE TO MONITOR.
--- NOTE | 2018-11-04 04:15 | NUR ---
SHIFT SUMMARY PT A/O. MOSTLY PLEASANT BUT CAN BE IRRITABLE AT TIMES. COMPLIANT WITH WEARING O2 THIS EVENING, ALTHOUGH PT REFUSES TO WEAR CANNULA IN NOSE AND WILL ONLY WEAR IT IN HIS MOUTH. CONTINUOUS BIOX ON, O2 SATS GOOD THROUGHOUT THE NIGHT. PT REFUSED MIDNIGHT HEPARIN DOSE. OTHERWISE NO ACUTE CHANGES. VSS. PT RESTING IN BED AT THIS TIME. WILL CONTINUE TO MONITOR AND REPORT TO DAY RN.
[2018-11-04 06:36] LABS: Hematocrit 36.8 % (37.0-53.0); Hemoglobin 11.6 g/dL (13.5-17.5); Mean Corpuscular HGB 31.1 pg (26.0-34.0); Mean Corpuscular HGB Conc 31.5 g/dL (31.5-36.5); Mean Platelet Volume 10.6 fL (9.1-12.4); Platelet Count 285 K/mm3 (150-400); RDW Coefficient Variation 13.3 % (11.7-14.2); RDW Standard Deviation 48.2 fL (35.1-46.3); Red Blood Cell Count 3.73 M/mm3 (4.30-5.90); White Blood Cell Count 16.35 K/mm3 (4.00-11.30)
[2018-11-04 06:39] LABS: Mean Corpuscular Volume 99 fL (80-100)
[2018-11-04 06:51] LABS: Bun/Creatinine Ratio 23.7 (12.0-20.0); Calcium, Blood 8.5 mg/dL (8.5-10.1); Creatinine, Blood 1.35 mg/dL (0.60-1.20); Potassium, Blood 4.7 mmol/L (3.5-5.5)
--- NOTE | 2018-11-04 19:10 | NUR ---
PT IS ALERT AND ORIENTED. HE WAS WEANED OFF OXYGEN VIA NC THIS MORNING WITH SATS IN THE 90%. HE PARTICIPATED WITH PHYSICAL THERAPY TODAY. HE COMPLAINED OF NASAL CONGESTION AND WAS ORDERED A NASAL SPRAY. HE USES THE URINAL AT THE BEDSIDE. NO ACUTE CHANGES, WILL CONTINUE TO MONITOR.
[2018-11-05 05:35] LABS: Hematocrit 38.3 % (37.0-53.0); Hemoglobin 12.1 g/dL (13.5-17.5); Mean Corpuscular HGB 31.2 pg (26.0-34.0); Mean Corpuscular HGB Conc 31.6 g/dL (31.5-36.5); Mean Corpuscular Volume 99 fL (80-100); Mean Platelet Volume 10.8 fL (9.1-12.4); Platelet Count 316 K/mm3 (150-400); RDW Coefficient Variation 13.2 % (11.7-14.2); RDW Standard Deviation 48.3 fL (35.1-46.3); Red Blood Cell Count 3.88 M/mm3 (4.30-5.90); White Blood Cell Count 13.76 K/mm3 (4.00-11.30)
[2018-11-05 05:56] LABS: Bun/Creatinine Ratio 23.4 (12.0-20.0); Calcium, Blood 8.8 mg/dL (8.5-10.1); Creatinine, Blood 1.24 mg/dL (0.60-1.20); Potassium, Blood 4.9 mmol/L (3.5-5.5)
--- NOTE | 2018-11-05 05:58 | NUR ---
SHIFT SUMMARY PT REPORTS THIS AM THAT HE DID NOT SLEEP WELL THIS EVENING, WAKING UP FREQUENTLY THROUGHOUT THE NIGHT. HOWEVER PT REMAINS PLEASANT. PT CAN BE STUBBORN ABOUT CARE AT TIMES. CONTINUES TO REFUSE HEPARIN INJECTIONS AND REFUSED SCD'S FOR PART OF THE NIGHT. PT GETS SOB W/ EXERTION, USING URINAL MOSTLY WHILE IN BED. FATIGUES EASILY WITH ANY FURTHER EXERTION. PT REMAINED ON RA THROUGHOUT THE NIGHT WITH O2 SATS IN THE LOW 90'S. CONTINUOUS BIOX IN PLACE. VSS. PT CURIOUS ABOUT HIS PLACEMENT AND WHEN THIS WILL HAPPEN. WILL CONTINUE TO MONITOR AND REPORT TO DAY RN.
--- NOTE | 2018-11-05 11:30 | NUR ---
PT GOT UP TO THE SIDE OF THE BED THIS MORNING FOR BREAKFAST. HE HAS USED THE URINAL IN BED INDEPENDENTLY. HE IS NOW LAYING IN BED WITH SCD'S IN PLACE AND ON. HE HAS ASKED FOR A SHOWER TODAY. NO OXYGEN IN PLACE, SATS ARE WNL. WILL CONTINUE TO MONITOR.
--- NOTE | 2018-11-05 17:57 | NUR ---
THIS PT IS ALERT AND ORIENTED. HE COMPLAINED OF NASAL CONGESTION THIS MORNING AND RECIEVED AFRIN NASAL SPRAY PER EMAR. HE HAS BEEN UP TO THE CHAIR AND SIDE OF THE BED FOR MEALS. HE RECIEVED A SHOWER THIS AFTERNOON. HE IS NO LONGER ON OXYGEN. HE HAS BEEN WEARING SCD'S IN BED. USES THE URINAL AT THE BEDSIDE.
--- NOTE | 2018-11-06 13:45 | NUR ---
Pt is lying in bed resting he reports of cold and needs a warm blanket and thias was prvided. Encouraged the pt to wait for the Dr to say when for him to go home offeed prayer s for the pt.
--- NOTE | 2018-11-06 15:53 | NUR ---
SHIFT SUMMARY NO ACUTE CHANGES. PATIENT OUT OF BED FOR MEALS. DENIES PAIN. WORKED WITH PT AND OT. POSSIBLY DISCHARGING TO SNF. DENIES PAIN, NAUSEA, AND SHORTNESS OF BREATH. CALL LIGHT IN REACH, WILL CONTINUE TO MONITOR.
[2018-11-07 05:41] LABS: Anion Gap 6 mmol/L (6-16); Blood Urea Nitrogen 26 mg/dL (8-24); CO2, Blood 27 mmol/L (21-32); Calcium, Blood 8.8 mg/dL (8.5-10.1); Chloride, Blood 102 mmol/L (98-108); Creatinine, Blood 1.18 mg/dL (0.60-1.20); Glomerular Filtration Rate >60 (60-); Glucose, Blood 106 mg/dL (70-99); Potassium, Blood 4.9 mmol/L (3.5-5.5); Sodium, Blood 135 mmol/L (136-145)
--- NOTE | 2018-11-07 06:06 | NUR ---
SHIFT SUMMARY: PT IS A&O, CALL LIGHT APPROPRIATE. BED ALARM ON FOR SAFETY PT GAIT IS WEAK AND UNSTEADY. 1 PER ASSIST TO BSC. PT IS ON RA, LS EXP WHEEZE. PT HAS EPISODE OF SOB, BECOMES ANXIOUS HE CANNOT CATCH HIS BREATH. O2 SATS ARE WNL DURING THIS TIME; 94-95%. PLACED ON 2L VIA NC FOR COMFORT AND OFFERED THERAPEUTIC COMMUNICATION UNTIL PT CAUGHT HIS BREATH. PT IS BACK ON RA AND HAVING NO DIFFICULTY BREATHING AT THIS TIME. PT HAS PROD COUGH c WEAK COUGH EFFORT. PICC TO [facility] IS PATENT AND DRAWING BLOOD; AM LABS DRAWN THIS MORNING BY RN. PT REFUSED MIDNIGHT HEPARIN REGARDLESS OF EDUCATION OF THE IMPORTANCE OF THIS MED. PT IS TO D/C TO [facility] FOR FURTHER REHAB BEFORE GOING HOME; PT IS AWARE AND ACCEPTING OF THIS PLAN. NO OTHER CHANGES TO REPORT. WILL CONT TO MONITOR AND PROVIDE CARE UNTIL PRESUMED BY ONCOMING RN.
--- NOTE | 2018-11-07 13:47 | NUR ---
Pt. is in bed relaxed and watchng T.V., pt is happy for he is doing much better, prayed for pt.
--- NOTE | 2018-11-08 01:07 | NUR ---
PT HAS GROUND LEVEL FALL @ 0050. PT USES URINAL INDEPENDENTLY IN BED, AND SLUMPED OUT OF BED ONTO THE GROUND. PT HITS HEAD ON GROUND, NO VISIBLE DAMAGE NOTED, PALPATION WNL. VSS. PT DENIES HEADACHE OR PAIN. PLACED CALL TO HOSPITALIST TO REPORT FALL. DR MÉNDEZ GIVES NO FURTHER ORDERS, "K, WATCH HIM." WILL CONT TO MONITOR.
[2018-11-08 07:02] LABS: Bun/Creatinine Ratio 21.5 (12.0-20.0); Calcium, Blood 8.7 mg/dL (8.5-10.1); Creatinine, Blood 1.95 mg/dL (0.60-1.20); Potassium, Blood 5.4 mmol/L (3.5-5.5)
--- NOTE | 2018-11-08 07:41 | NUR ---
SHIFT SUMMARY: PT HAD FALL TONIGHT, SEE PRIOR NOTE. NO CHANGES SINCE FALL; DENIES HEADACHE AND MENTATION IS CLEAR. IMPULSIVE AND A FALL RISK, BED ALARM ON. 1 PER ASSIST TO BSC. EXP WHEEZE T/O LUNG VELA, ON 2L VIA NC. PT WAS TOLERATING RA PRIOR, BUT O2 SATS WERE AT 88% THIS SHIFT. PICC LINE TO [facility] IS PATENT AND DRAWING; AM LABS DRAWN. PT TO D/C TO [facility] ONCE BED IS AVAILABLE. WILL CONT TO MONITOR AND PROVIDE CARE UNTIL PRESUMED BY ONCOMING RN.
--- NOTE | 2018-11-08 09:40 | NUR ---
HE SAYS "I'D HAVE TO GET BETTER TO ". HE IS FRUSTRATED AT HIS LACK OF ENERGY AND LACK OF APPETITE. UP TO BSC AFTER BREAKFAST FOR A BM. YELLOW GOWN IS ON AND BED ALARM IS ON AFTER HE SLID OFF THE BED LAST NIGHT.
--- NOTE | 2018-11-08 11:43 | NUR ---
Pt. is in bed relaxed he says that he is doing much better , encouraged pt. to keep it up ans prayed for him
--- NOTE | 2018-11-08 12:37 | NUR ---
SPOKE WITH ABOUT LABS AND NEUTRAPHOS. HE SAYS TO CONTINUE THE NEUTRAPHOS.
--- NOTE | 2018-11-08 15:16 | NUR ---
TYLENOL AND K-PAD GIVEN FOR R SHOULDER PAIN. HE SAYS IT HURTS BECAUSE HE ALWAYS RAISES HIS ARM UP AND SLEEPS WITH HIS HAND BEHIND HIS HEAD. HE IS CURRENTLY SLEEPING IN JUST THAT POSITION.
--- NOTE | 2018-11-08 17:45 | NUR ---
HE HAS BEEN TIRED AND DISINTERESTED IN LIFE TODAY. HIS SON IS HERE NOW AND STRONGLY ENCOURAGING HIM TO TRY TO GET WELL. PATIENT DID NOT WORK WITH PT TODAY. FAMILY THINKS HE WILL BE MORE LIKELY TO PARTICIPATE IF THEY COME AFTER LUNCHTIME. WILL PASS THAT ON TOMORROW. I ASKED PATIENT IF HE WOULD BE INTERESTED IN AN ANTIDEPRESSANT IF THE DOCTOR THOUGHT IT WOULD BE A GOOD IDEA. HIS SON SUGGESTED REMERON BECAUSE OF THE ADDED SIDE EFFECT OF STIMULATION OF APPETITE. PATIENT AGREES TO TRY IT. ORDERED IT. IT WILL START TONIGHT. HE TAKES HIS OXYGEN OFF ALL THE TIME BECAUSE HIS SINUSES/NOSE DRIPS ALL THE TIME. HE FORGETS THE CANNULA UP ON HIS FOREHEAD. LAST O2 SAT ON VS WAS 85%. VS OTHERWISE STABLE. HIS STATUS CHANGED 3 DAYS AGO. 4 DAYS AGO THE AUGMENTIN STARTED. WONDERING IF THE AUGMENTIN CAUSED HIS ORIGINAL NAUSEA ON THE WEEKEND AND DECREASED APPETITE SINCE.
--- NOTE | 2018-11-09 04:10 | NUR ---
DESULFURIZER MACHINE SUMMARY PT AAOX3, FORGETFUL AT TIMES BUT PLEASANT AND FOLLOWS DIRECTION. BED ALARM ON FOR SAFETY. PT HYPERTENSIVE THIS AM WITH SBP OF 188. SPOKE WITH DR MÉNDEZ REGARDING HYPERTENSION, RECIEVED ORDER FOR PRN HYDRALAZINE. SBP DOWN TO 110'S AFTER HYDRALAZINE. PT HAD FIRST DOSE OF REMERON TONIGHT. AFTER TAKING REMERON, PT A BIT MORE GROGGY AND HAD MORE DIFFICULTY GETTING TO SIDE OF BED TO USE URINAL. PT STATED "I'M THINKING THAT NEW MED THEY GAVE ME IS MAKING ME SO TIRED AND WEAK". HAD TO ASSIST PT WITH URINAL USE. OTHER VSS, O2 SATS MAINTAINING OVER 90% WITH 2L O2 VIA NC. WILL CONTINUE TO MONITOR.
[2018-11-09 05:40] LABS: BASOPHILS ABSOLUTE AUTO 0.01 K/mm3 (0.00-0.23); BASOPHILS PERCENT AUTO 0 % (0-2); EOSINOPHILS ABSOLUTE AUTO 0.01 K/mm3 (0.00-0.68); EOSINOPHILS PERCENT AUTO 0 % (0-6); Hematocrit 37.5 % (37.0-53.0); IMMATURE GRAN ABSOLUTE AUTO 0.12 K/mm3 (0.00-0.10); IMMATURE GRAN PERCENT AUTO 1 % (0-1); LYMPHOCYTES PERCENT AUTO 4 % (21-46); MONOCYTES ABSOLUTE AUTO 0.74 K/mm3 (0.16-1.47); MONOCYTES PERCENT AUTO 5 % (4-13); Mean Corpuscular HGB 30.6 pg (26.0-34.0); Mean Platelet Volume 10.5 fL (9.1-12.4); NEUTROPHILS PERCENT AUTO 90 % (41-73); Platelet Count 260 K/mm3 (150-400); RDW Coefficient Variation 13.6 % (11.7-14.2); Red Blood Cell Count 3.92 M/mm3 (4.30-5.90); White Blood Cell Count 14.58 K/mm3 (4.00-11.30)
[2018-11-09 05:41] LABS: Mean Corpuscular Volume 96 fL (80-100)
[2018-11-09 05:56] LABS: Bun/Creatinine Ratio 26.8 (12.0-20.0); Calcium, Blood 8.4 mg/dL (8.5-10.1); Creatinine, Blood 2.13 mg/dL (0.60-1.20); Potassium, Blood 4.7 mmol/L (3.5-5.5)
[2018-11-09] MEDS ORDERED: Lopressor 25 mg25 MG PO (12:14)
[2018-11-09] MEDS ORDERED: ALBU2.5V5 NEB (12:14)
[2018-11-09] MEDS ORDERED: Pacerone400 MG PO (12:14)
[2018-11-09] MEDS ORDERED: AMOCLA500 PO (12:15)
[2018-11-09] MEDS ORDERED: CLOP75 PO (12:15)
[2018-11-09] MEDS ORDERED: Docu Liqui50 MG/5 ML PO (12:16)
[2018-11-09] MEDS ORDERED: MIRT15 PO (12:18)
[2018-11-09] MEDS ORDERED: Thiamine HCl100 MG PO (12:19)
[2018-11-09] MEDS ORDERED: OMEPRAZOLE MAGN20 MG PO (12:19)
--- NOTE | 2018-11-09 13:15 | NUR ---
Pt, is doing much better and is transfered to Rehab this morning , encouraged pt. and prayed foor him.
--- NOTE | 2018-11-09 14:49 | NUR ---
DISCHARGED TO [facility] BY AMBULANCE TRANSPORT AT 1115 THIS MORNING. HE HAD TRANSFER Packet AND HIS BELONGINGS WITH HIM. REPORT CALLED TO YENNY SWENSON. HE HAD NO NEW COMPLAINTS AND WAS PLEASED TO GO TO REHAB NEAR HIS SON.
== END 2018-11-09 11:16 | DRG 291 ==
LOC: ER 18:38 → ICUE 21:02 → ERHOLD 21:02 → ICUE 22:10 → MEDS 11-01 11:28 → ENPENDDIS 11-09 10:32 → MEDS 11-09 11:16
PROVIDERS: Emergency Medicine; Hospitalist; Internal Medicine; Internal Medicine Critical Care Medicine; Nurse Practitioner Acute Care; ADMIT Hospitalist
PROC: 5A09557 Assistance with Respiratory Ventilation, Greater than 96 Consecutive Hours, Continuous Positive Airway Pressure (ICD-10-PCS; principal; 2018-10-26)
PROC: 02HV33Z Insertion of Infusion Device into Superior Vena Cava, Percutaneous Approach (ICD-10-PCS; 2018-10-28)
DX: I13.0 Hypertensive heart and chronic kidney disease with heart failure and stage 1 through stage 4 chronic kidney disease, or unspecified chronic kidney disease (principal); J18.9 Pneumonia, unspecified organism; J96.01 Acute respiratory failure with hypoxia; I63.9 Cerebral infarction, unspecified; I50.23 Acute on chronic systolic (congestive) heart failure; N39.0 Urinary tract infection, site not specified; I47.2 Ventricular tachycardia; G81.94 Hemiplegia, unspecified affecting left nondominant side; I48.0 Paroxysmal atrial fibrillation; N18.3 Chronic kidney disease, stage 3 (moderate); Z51.5 Encounter for palliative care; R56.9 Unspecified convulsions; I25.10 Atherosclerotic heart disease of native coronary artery without angina pectoris; I95.9 Hypotension, unspecified; R91.8 Other nonspecific abnormal finding of lung field; J44.9 Chronic obstructive pulmonary disease, unspecified; E78.5 Hyperlipidemia, unspecified; K21.9 Gastro-esophageal reflux disease without esophagitis; N40.0 Benign prostatic hyperplasia without lower urinary tract symptoms; I42.9 Cardiomyopathy, unspecified; I35.0 Nonrheumatic aortic (valve) stenosis; Z66 Do not resuscitate
CPT/HCPCS: 36415; 36569; 36600; 51702; 70450; 71045; 71250; 80048; 80053; 80069; 81001; 82803; 82947; 83735; 83880; 84145; 84439; 84443; 84481; 84484; 85014; 85018; 85025; 85027; 85610; 85730; 87086; 87486; 87581; 87633; 87798; 93005; 93010; 93880; 94640; 94660; 94760; 94762; 95819; 96365; 96367; 97110; 97116; 97161; 97166; 97530; 97535; 99285-25; C1751; C8929; J0360; J1265; J1644; J1940; J1953; J2405; J2543; J3475; J3480; J7030; Q9957

== ENCOUNTER 2019-01-31 18:25 | Emergency (ER) | payer OTHER ==
[~2019-01-31] VITALS: Ht 167.6 cm; Wt 54.4 kg
[~2019-01-31 18:25] MED LIST changes: +**INCOMPLETE MED REC; +ALBU2.5V5 NEB; +AMOCLA500 PO; +ASPI325 PO; +CLOP75 PO; +Docu Liqui50 MG/5 ML PO; +FENO48 PO; +Hytrin2 MG PO; +Lopressor 25 mg25 MG PO; +MIRT15 PO; +Metoprolol Tar100 MG PO; +OMEPRAZOLE MAGN20 MG PO; +OMEPRAZOLE20 MG PO; +Pacerone400 MG PO
[2019-01-31] MEDS ORDERED: Milk Of Ma400 MG/5 M PO (18:37)
[2019-01-31] MEDS ORDERED: ONDA4ODT (18:37)
[2019-01-31] MEDS ORDERED: Colace100 MG (18:38)
[2019-01-31] MEDS ORDERED: Lopressor 25 mg25 MG PO (18:38)
[2019-01-31] MEDS ORDERED: TRAM50 PO (18:38)
[2019-01-31] MEDS ORDERED: ALBU2.5V5 (18:38)
[2019-01-31] MEDS ORDERED: NITR100CA PO (18:39)
[2019-01-31] MEDS ORDERED: B-1100 MG PO (18:39)
[2019-01-31] MEDS ORDERED: MIRT15 PO (18:39)
[2019-01-31] MEDS ORDERED: Florastor250 MG PO (18:39)
[2019-01-31] MEDS ORDERED: OMEPRAZOLE20 MG PO (18:40)
[2019-01-31] MEDS ORDERED: FENO48 PO (18:40)
[2019-01-31] MEDS ORDERED: Pacerone400 MG PO (18:40)
[2019-01-31] MEDS ORDERED: CLOP75 PO (18:40)
[2019-01-31] MEDS ORDERED: ASPI325 PO (18:40)
[2019-01-31 18:44] LABS: PCO2 Arterial 22.3 mmHg (35-45); PO2 Arterial 70.3 mmHg (80-100); pH Blood Arterial 7.39 (7.35-7.45)
[2019-01-31 19:19] LABS: BASOPHILS ABSOLUTE AUTO 0.05 K/mm3 (0.00-0.23); BASOPHILS PERCENT AUTO 0 % (0-2); EOSINOPHILS ABSOLUTE AUTO 0.02 K/mm3 (0.00-0.68); EOSINOPHILS PERCENT AUTO 0 % (0-6); Hematocrit 47.7 % (37.0-53.0); Hemoglobin 14.8 g/dL (13.5-17.5); IMMATURE GRAN ABSOLUTE AUTO 0.09 K/mm3 (0.00-0.10); IMMATURE GRAN PERCENT AUTO 1 % (0-1); LYMPHOCYTES ABSOLUTE AUTO 1.19 K/mm3 (0.84-5.20); LYMPHOCYTES PERCENT AUTO 9 % (21-46); MONOCYTES ABSOLUTE AUTO 0.72 K/mm3 (0.16-1.47); MONOCYTES PERCENT AUTO 6 % (4-13); Mean Corpuscular HGB 29.8 pg (26.0-34.0); Mean Corpuscular Volume 96 fL (80-100); NEUTROPHILS ABSOLUTE AUTO 10.92 K/mm3 (1.96-9.15); NEUTROPHILS PERCENT AUTO 84 % (41-73); Platelet Count 433 K/mm3 (150-400); RDW Coefficient Variation 16.5 % (11.7-14.2); RDW Standard Deviation 57.7 fL (35.1-46.3); Red Blood Cell Count 4.96 M/mm3 (4.30-5.90); White Blood Cell Count 12.99 K/mm3 (4.00-11.30)
[2019-01-31] MEDS ORDERED: Thiamine HCl100 MG PO (19:41)
[2019-01-31 19:49] LABS: Troponin I 0.191 ng/mL (0.000-0.040)
[2019-01-31 19:53] LABS: Albumin, Blood 3.9 g/dL (3.4-5.0); Albumin/Globulin Ratio 0.8 (0.8-1.8); Bilirubin, Total 2.4 mg/dL (0.1-1.0); Bun/Creatinine Ratio 18.9 (12.0-20.0); Creatinine, Blood 1.59 mg/dL (0.60-1.20); Globulin, Blood 4.6 g/dL (2.2-4.0); Potassium, Blood 4.6 mmol/L (3.5-5.5); Total Protein, Blood 8.5 g/dL (6.4-8.2)
== END 2019-01-31 21:30 ==
LOC: ER 18:25
PROVIDERS: Emergency Medicine
DX: J96.91 Respiratory failure, unspecified with hypoxia (principal); I42.9 Cardiomyopathy, unspecified; Z88.8 Allergy status to other drugs, medicaments and biological substances; Z79.899 Other long term (current) drug therapy; Z79.891 Long term (current) use of opiate analgesic; Z79.82 Long term (current) use of aspirin; I10 Essential (primary) hypertension; Z87.891 Personal history of nicotine dependence
CPT/HCPCS: 36415; 36600; 71045; 80053; 82803; 83605; 83880; 84484; 85025; 87040; 93005; 93010; 94644; 94660; 96365; 96375; 99285-25; J2405; J2543; J3010; J7030